=== PATIENT | male | born 1955 | race Caucasian/White ===

== ENCOUNTER 2018-04-10 08:08 | Outpatient (CLI) | payer OTHER ==
--- NOTE | 2018-04-10 10:05 | RAD ---
PA AND LATERAL CHEST X-RAY: 04/10/2018 HISTORY: Preop evaluation. COMPARISON: None available. FINDINGS: The cardiac silhouette and pulmonary vasculature are within normal limits. The lungs are clear. Oss eous structures are intact. There is increased density seen within the anterior aspect of the mid ab domen, incompletely imaged, probably related to a loop of bowel in this region. No other findings. IMPRESSION: No acute cardiopulmonary process. POS: [facility]
[2018-04-10 10:10] LABS: #Basophils 0.1 thou/uL (0.0-0.2); #Eosinphils 0.2 thou/uL (0.0-0.7); #Lymphocytes 1.8 thou/uL (1.20-3.40); #Monocytes 0.5 thou/uL (0.11-0.59); #Neutrophils 3.9 thou/uL (1.40-6.50); %Basophils 1.5 % (0.0-1.0); %Eosinophils 3.6 % (0.0-10.0); %Lymphocytes 27.4 % (21.0-51.0); %Monocytes 7.1 % (0.0-10.0); %Neutrophils 60.5 % (42.0-75.0); Hemoglobin 14.1 g/dL (14.0-18.0); Mean Corpuscular HGB CONC 33.4 g/dL (32.0-36.0); Mean Corpuscular Hemoglobin 31.1 pg (27.0-31.0); Mean Platelet Volume 6.7 fL (7.4-10.4); Platelet Count 477 thou/uL (130-400); RBC Distribution Width 11.9 % (11.5-14.5); Red Blood Cell (RBC) Count 4.54 mill/uL (4.70-6.10); White Blood Cell (WBC) Count 6.4 thou/uL (4.8-10.8)
[2018-04-10 10:15] LABS: Bilirubin Negative (Negative); Blood, Urine Negative (Negative); Clarity CLEAR (Clear); Glucose, Urine (Dipstick) Negative (Negative); Leukocyte Negative (Negative); Nitrite Negative (Negative); Protein, Urine (Dipstick) Negative (Neg-Trace); Specific Gravity, Urine 1.005 (1.002-1.036); Urobilinogen 0.2 mg/dL (0.2-1.0); pH, Urine 6.5 (5.0-9.0)
[2018-04-10 10:16] LABS: INR-International Normal Ratio 0.9; Prothrombin Time 11.8 SEC (12.0-14.7)
[2018-04-10 10:17] LABS: Bacteria/HPF None Seen HPF (None Seen); Hyaline Casts/LPF 0-3 HYALINE CAST LPF (0-3 Hyaline); RBC/HPF None Seen HPF (0-3); Squamous Epithelial None Seen HPF (0-3); WBC/HPF None Seen HPF (0-3)
[2018-04-10 10:32] LABS: Anion Gap 12 mmol/L (10-20); BUN (Urea Nitrogen) 19 mg/dL (8.4-25.7); Calc. Creatinine Clearance 0 mL/min (70-130); Calcium 9.4 mg/dL (7.8-10.44); Carbon Dioxide 27 mmol/L (23-31); Chloride 102 mmol/L (98-107); Estimated GFR-MDRD 69; Glucose 95 mg/dL (80-115); Potassium 3.7 mmol/L (3.5-5.1); Sodium 137 mmol/L (136-145)
--- NOTE | 2018-04-14 10:01 | EKG ---
Test Reason : Blood Pressure : / mmHG Vent. Rate : 056 BPM Atrial Rate : 056 BPM P-R Int : 196 ms QRS Dur : 094 ms QT Int : 418 ms P-R-T Axes : 048 -02 034 degrees QTc Int : 403 ms Sinus bradycardia Cannot rule out Anterior infarct , age undetermined Abnormal ECG No previous ECGs available Confirmed by DR. Christian FERRELL ([id number]) on 04/14/2018 10:01:21 AM Referred By: LOGAN Confirmed By:DR. Christian FERRELL
== END 2018-04-10 08:09 | disposition home or self-care (01) ==
LOC: LABBT 08:08
PROVIDERS: ATTEND Orthopaedic Surgery
DX: Z01.818 Encounter for other preprocedural examination (principal); M17.11 Unilateral primary osteoarthritis, right knee
CPT/HCPCS: 71046; 80048; 81001; 85025; 85610; 86850; 86900; 86901; 87081; 93005; 93010

== ENCOUNTER 2018-04-15 07:17 | Day surgery (SDC) | payer OTHER ==
[2018-04-15] MEDS ORDERED: CEFAZOLIN/Water 2 GM/20 ML SYRINGE ONE (08:08)
[2018-04-15] MEDS ORDERED: Sodium Chloride 0.9% 100 ML ONE (08:08)
[2018-04-15] MEDS ORDERED: Sodium Chloride 0.9% 0 ML ONE (08:08)
[2018-04-15] MEDS ORDERED: Vancomycin HCl 1.5 GM in Sodium Chloride 0.9% 250 ML 300 ML IVPB SCH (08:30)
[2018-04-15] MEDS ORDERED: Fentanyl 100 MCG/2 ML VIAL ONE ×4 (09:34→13:31)
[2018-04-15] MEDS ORDERED: Midazolam HCl 2 mg/2 ml Vial ONE (09:34)
[2018-04-15] MEDS ORDERED: Ropivacaine HCl/PF 250 ML in Premix Bag 1 BAG NERVE BLCK SCH (11:04)
[2018-04-15] MEDS ORDERED: traMADol HCl 50 MG TAB PO PRN ×2 (11:04→11:07)
[2018-04-15] MEDS ORDERED: Promethazine HCl 25 MG/ML VIAL IM PRN ×3 (11:04→12:49)
[2018-04-15] MEDS ORDERED: HYDROcodone/Acetaminophen 5/325 mg Tablet PO PRN (11:04)
[2018-04-15] MEDS ORDERED: Zolpidem Tartrate 5 MG TAB PO PRN ×2 (11:04→11:07)
[2018-04-15] MEDS ORDERED: Ondansetron HCl/PF 4 MG/2 ML Vial IVP PRN ×3 (11:04→12:49)
[2018-04-15] MEDS ORDERED: Fentanyl 100 MCG/2 ML VIAL IV PRN (11:05)
[2018-04-15] MEDS ORDERED: diphenhydrAMINE 25 MG CAP PO PRN (11:07)
[2018-04-15] MEDS ORDERED: Fentanyl 100 MCG/2 ML VIAL SLOW IVP PRN ×2 (11:07)
[2018-04-15] MEDS ORDERED: HYDROcodone/Acetaminophen 10/325 mg Tablet PO PRN ×2 (11:07)
[2018-04-15] MEDS ORDERED: Morphine 4 MG/ML Carpuject IVP PRN (11:07)
[2018-04-15] MEDS ORDERED: Acetaminophen 325 MG TAB PO PRN (11:07)
[2018-04-15] MEDS ORDERED: Promethazine HCl 25 MG/ML VIAL SLOW IVP PRN (12:49)
--- NOTE | 2018-04-15 12:55 | OP ---
DATE OF PROCEDURE: 04/15/2018 PREOPERATIVE DIAGNOSIS: Degenerative joint disease, right knee. POSTOPERATIVE DIAGNOSIS: Degenerative joint disease, right knee. SURGEON: Haseeb Valencia M.D. [employer]IATE: Jose Rafael Mcconnell PA-C. TITLE OF PROCEDURE: Right total knee arthroplasty using [place] Triathlon 4 femur, 4 tibia, 9 mm CSX 3 polyethylene, and A32 patella. TOURNIQUET TIME: 46 minutes. SPECIMEN: None. DRAINS: None. COMPLICATIONS: None. PROCEDURE IN DETAIL: After informed consent was obtained in the preoperative holding area. The anjel ent was taken to the operative suite where general anesthesia was induced. Once adequate level of ge neral anesthesia was obtained, the patient was positioned and a well-padded tourniquet was placed catherine und the right proximal thigh. The right lower extremity was then prepped and draped in the usual clemente rile fashion. Prior to exsanguination, a time out was called and all members of the surgical team ag debbie upon site, surgeon, and patient. The extremity was then exsanguinated and the tourniquet was ra ised. A midline longitudinal incision was then made directly over the patella extending two fingerbr eadths above the superior pole of the patella and two fingerbreadths inferior to the inferior patella r pole of the patella. Deeper subcutaneous layers were dissected sharply and local bleeding was cont rolled with Bovie electrocautery. A quad tendon longitudinal split was then made sharply and a media n parapatellar arthrotomy was carried out both sharp and with Bovie electrocautery, carried down to o ne fingerbreadth medial to the tibial tubercle. The knee was then placed into flexion and the patell a was everted nicely, and a copious fat pad ectomy was performed allowing for greater exposure of the tibia. The computer-assisted distal femoral fiducial was then placed and pinned firmly, and the dis shruti femoral cutting guide was pinned firmly into place. The oscillating saw was then used to remove the appropriate amount of bone. The 4-in-1 cutting block was then placed on the distal femur and the oscillating saw was used to remove the appropriate amount of bone off of the anterior, posterior, an d chamfer cuts. After completion of bone cuts, the anterior cruciate ligament was resected sharply a nd the posterior cruciate ligament retractor was placed and the tibia was subluxed for better exposur e. Partial meniscectomies were carried out, and the tibial computer-assisted fiducial was pinned, an d the cutting guide was placed. Oscillating saw was then used to remove the bone with Hohmann retrac tors used to take care and protect the collateral ligaments. After the tibial resection was performe d, a laminar auto travel counselor was placed in between the freshened bone cuts. The knee placed at 90 degrees a nd further bilateral meniscectomies were carried out, and the curved osteotome and curettage was used to remove any excess bone spurs in the posterior compartment. The trial femoral component, tibial b aseplate were placed with the appropriate polyethylene trial insert with an appropriate polyethylene spacer and patellar button. The knee was taken through full range of motion with flexion and extensi on from 0-90 degrees and patellar broach squarely in the trochlea without any squinting or subluxatio n noted. The knee was also stable to varus and valgus stressing at 0, 15, 45, and 90 degrees of flex ion. The drawer was negative. All trial components were then removed and the keel punch was used to provide the appropriate defect in the tibia with a mallet. The freshened bone cuts were copiously ir rigated with pulsatile lavage of about 1-1/2 liters to remove all excess debris. The freshened bone cuts were then dried and with suction and lap sponge. The knee was placed in flexion and retractors were placed to provide access to all bone cuts. Tobramycin impregnated methyl methacrylate cement wa s then placed on the freshened bone cuts and implants which were malleted firmly into place. Curetta ge and [place] elevators were used to remove any excess bone cement. The knee was placed into full ext ension and the patellar button was placed under compression, and the cement was allowed to cure. Onc e completed, the components were again taken through full range of motion and copious irrigation of t he knee was carried out with another liter of normal saline. All components were inspected fully wit h full range of motion and varus and valgus stressing. There was no laxity noted and full extension w as observed clinically. Primary closure was accomplished with #2 interrupted Vicryl stitch of the ar throtomy defect. This was oversewn with a #2 running Quill barbed stitch. The gravitational platele t system was then injected into the arthrotomy prior to closure. The subcutaneous layer was then mili sed with a running 0 barbed Monocryl stitch and skin closure accomplished with a running subcuticular 3-0 Monocryl barbed Quill stitch and augmented with cement on the skin. Tourniquet was lowered. Go od spontaneous return of distal pulses was noted clinically and a sterile dressing was applied to the incision. The procedure was terminated without any complications. The patient was awakened in the operative suite and the tourniquet was removed, and the patient was taken to the recovery room in sta ble condition.
[2018-04-15] MEDS ORDERED: Ketorolac Tromethamine 30 MG/ML VIAL ONE (13:35)
[2018-04-15] MEDS ORDERED: Ropivacaine 0.5% HCl/PF (150 MG/30 ML VIAL) ONE (13:48)
[2018-04-15] MEDS ORDERED: Ropivacaine 0.2% HCl/PF (40 MG/20 ML VIAL) ONE (13:48)
[2018-04-15] MEDS ORDERED: PROPOFOL 200 MG/20 ML VIAL ONE (14:16)
[2018-04-15] MEDS ORDERED: ePHEDrine/0.9% NaCl/PF SYRINGE 50 mg/10 ml ONE (14:16)
[2018-04-15 14:26] VITALS: BMI 28.1
--- NOTE | 2018-04-15 14:54 | RAD ---
TWO VIEWS OF THE RIGHT KNEE 04/15/18 INDICATION: Postop right knee FINDINGS: There is a right total knee prosthesis that projects in the expected position. Scattered intra-articu lar and para-articular soft tissue gas is present consistent with patient's recent postop state. IMPRESSION: Right total knee prosthesis. POS: [facility]
[2018-04-15] MEDS: Sodium Chloride 0.9% 1,000 ML IV SCH ×2 (15:14→21:12)
[2018-04-15] MEDS: Ketorolac Tromethamine 30 MG/ML VIAL IM SCH ×2 (15:15→20:51)
[2018-04-15] MEDS ORDERED: CEFAZOLIN/Water 2 GM/20 ML SYRINGE SLOW IVP SCH (16:00)
[2018-04-15] MEDS: CEFAZOLIN/Water 2 GM/20 ML SYRINGE SLOW IVP SCH (20:50)
[2018-04-15] MEDS: traMADol HCl 50 MG TAB PO PRN (20:53)
[2018-04-15] MEDS: Atorvastatin Calcium 20 MG TAB PO SCH (20:54)
[2018-04-15] MEDS: Aspirin 81 mg Enteric Coated Tablet PO SCH (20:58)
[2018-04-15] MEDS ORDERED: hydrALAZINE 20 MG/ML VIAL SLOW IVP PRN (22:59)
--- NOTE | 2018-04-15 23:07 | PDOC.EVN ---
Event Note - Event Note Event Note: Patient seen and examined. Chart reviewed. Cont Avapro and Statins. Add PRN HTN meds.
[2018-04-16 04:40] LABS: Hemoglobin 11.5 g/dL (14.0-18.0); Mean Corpuscular HGB CONC 33.2 g/dL (32.0-36.0); Mean Corpuscular Hemoglobin 30.7 pg (27.0-31.0); Mean Corpuscular Volume 92.5 fL (78.0-98.0); Mean Platelet Volume 6.6 fL (7.4-10.4); Platelet Count 358 thou/uL (130-400); RBC Distribution Width 11.9 % (11.5-14.5); Red Blood Cell (RBC) Count 3.76 mill/uL (4.70-6.10); White Blood Cell (WBC) Count 11.1 thou/uL (4.8-10.8)
[2018-04-16] MEDS: Ketorolac Tromethamine 30 MG/ML VIAL IM SCH ×3 (04:53→21:47)
[2018-04-16] MEDS: CEFAZOLIN/Water 2 GM/20 ML SYRINGE SLOW IVP SCH (04:54)
[2018-04-16] MEDS: traMADol HCl 50 MG TAB PO PRN ×2 (04:57→16:36)
[2018-04-16] MEDS: Sodium Chloride 0.9% 1,000 ML IV SCH ×2 (08:04→16:39)
[2018-04-16] MEDS: Aspirin 81 mg Enteric Coated Tablet PO SCH ×2 (08:07→20:11)
[2018-04-16] MEDS: Ferrous Gluconate 324 MG TAB PO SCH ×2 (08:07→20:11)
[2018-04-16] MEDS: Multivitamin W/ Minerals 1 TAB PO SCH (08:07)
[2018-04-16] MEDS: Senokot S 8.6-50 MG TAB PO SCH ×2 (08:08→20:10)
[2018-04-16] MEDS: HYDROcodone/Acetaminophen 5/325 mg Tablet PO PRN ×3 (13:03→23:57)
[2018-04-16] MEDS: Atorvastatin Calcium 20 MG TAB PO SCH (20:11)
[2018-04-17] MEDS: Sodium Chloride 0.9% 1,000 ML IV SCH ×2 (02:29→13:46)
[2018-04-17] MEDS: HYDROcodone/Acetaminophen 5/325 mg Tablet PO PRN ×3 (04:03→12:59)
[2018-04-17] MEDS: traMADol HCl 50 MG TAB PO PRN (04:48)
[2018-04-17 05:30] LABS: Hemoglobin 11.7 g/dL (14.0-18.0); Mean Corpuscular HGB CONC 33.4 g/dL (32.0-36.0); Mean Corpuscular Hemoglobin 30.7 pg (27.0-31.0); Mean Corpuscular Volume 91.9 fL (78.0-98.0); Mean Platelet Volume 6.6 fL (7.4-10.4); Platelet Count 331 thou/uL (130-400); RBC Distribution Width 11.9 % (11.5-14.5); Red Blood Cell (RBC) Count 3.83 mill/uL (4.70-6.10); White Blood Cell (WBC) Count 8.9 thou/uL (4.8-10.8)
[2018-04-17] MEDS: Ketorolac Tromethamine 30 MG/ML VIAL IM SCH (06:03)
[2018-04-17] MEDS: Aspirin 81 mg Enteric Coated Tablet PO SCH (09:12)
[2018-04-17] MEDS: Multivitamin W/ Minerals 1 TAB PO SCH (09:12)
[2018-04-17] MEDS: Ferrous Gluconate 324 MG TAB PO SCH (09:13)
[2018-04-17] MEDS: Senokot S 8.6-50 MG TAB PO SCH (09:14)
[2018-04-17 11:54] VITALS: BP 158/80; TEMP 98.3
== END 2018-04-17 13:45 | disposition home or self-care (01) ==
LOC: SDC 07:17 → EDSTATUS 08:30 → SJJU 14:06 → SDC 04-17 13:45
PROVIDERS: ATTEND Orthopaedic Surgery
PROC: 0SRC0JZ Replacement of Right Knee Joint with Synthetic Substitute, Open Approach (ICD-10-PCS; principal; 2018-04-15)
DX: M17.11 Unilateral primary osteoarthritis, right knee (principal); I10 Essential (primary) hypertension; Z79.899 Other long term (current) drug therapy
CPT/HCPCS: 36415; 85027; 96372; 96374; 96375; 96376; A4216; C1713; C1776; G8978-GP-CM; G8979-GP-CI; J0131; J1885; J2250; J2704; J2795; J3010; J3370; J7050

== ENCOUNTER 2022-02-10 09:19 | Emergency (ER) | payer MEDICARE, OTHER ==
[2022-02-10] MEDS ORDERED: methylPREDNISolone Sod Succ/PF 125 MG/2 ML VIAL ONE (09:30)
[2022-02-10] MEDS ORDERED: diphenhydrAMINE 50 MG/ML VIAL ONE (09:30)
[2022-02-10] MEDS ORDERED: Famotidine/PF 20 mg/2ml Vial ONE (09:30)
[2022-02-10] MEDS ORDERED: Boostrix 0.5 ML (Tdap) VIAL ONE (09:51)
[2022-02-10] MEDS ORDERED: Proparacaine 0.5% Opth 15 ML BOT ONE (09:56)
[2022-02-10] MEDS ORDERED: Fluorescein Opthalmic Strip ONE (09:56)
== END 2022-02-10 10:35 | disposition home or self-care (01) ==
LOC: ERS 09:19
DX: T63.461A Toxic effect of venom of wasps, accidental (unintentional), initial encounter (principal); S05.01XA Injury of conjunctiva and corneal abrasion without foreign body, right eye, initial encounter; E78.00 Pure hypercholesterolemia, unspecified; Z23 Encounter for immunization
CPT/HCPCS: 90471; 90715; 96374; 96375; J1200; J2930; S0028

== ENCOUNTER 2023-03-28 11:19 | Outpatient (CLI) | payer MEDICARE | END 2023-03-28 11:20 | disposition home or self-care (01) | LOC: SCSMRI 11:19 | PROVIDERS: ATTEND Orthopaedic Surgery | DX: S83.242A Other tear of medial meniscus, current injury, left knee, initial encounter (principal); M17.12 Unilateral primary osteoarthritis, left knee; M23.92 Unspecified internal derangement of left knee; S83.282A Other tear of lateral meniscus, current injury, left knee, initial encounter; M25.462 Effusion, left knee; M84.452A Pathological fracture, left femur, initial encounter for fracture ==

== ENCOUNTER 2025-03-14 13:48 | Emergency (ER) | payer MEDICARE ==
[2025-03-14] MEDS ORDERED: Lidocaine 1% w/Epinephrine 1:100K 20 ML VIAL ONE (17:37)
== END 2025-03-14 19:11 | disposition home or self-care (01) ==
LOC: ERS 13:48
DX: L02.31 Cutaneous abscess of buttock (principal); L03.317 Cellulitis of buttock; E78.00 Pure hypercholesterolemia, unspecified
CPT/HCPCS: 10060

== ENCOUNTER 2025-03-17 07:12 | Emergency (ER) | payer MEDICARE | END 2025-03-17 07:57 | disposition home or self-care (01) | LOC: ERS 07:12 | DX: Z48.817 Encounter for surgical aftercare following surgery on the skin and subcutaneous tissue (principal) | CPT/HCPCS: 99282 ==